=== PATIENT | female | born 1985 | race Caucasian/White ===

== ENCOUNTER 2016-10-19 06:53 | Observation (INO) ==
[2016-10-17 11:43] LABS: Basophils # (Auto) 0 K/mcL (0.0-0.3); Basophils % (Auto) 0.3 % (0.0-2.0); Eosinophils # (Auto) 0.1 K/mcL (0.0-0.7); Eosinophils % (Auto) 1.5 % (0.0-7.0); Granulocytes % (Auto) 62.3 % (38.0-78.0); Lymphocytes # (Auto) 1.7 K/mcL (1.5-4.8); Lymphocytes % (Auto) 29.8 % (15.5-49.0); Mean Cell Volume 87.5 fL (80.0-100.0); Mean Corpuscular HGB Conc 33.4 g/dL (31.0-36.0); Mean Corpuscular Hemoglobin 29.2 pg (26.0-34.0); Monocytes # (Auto) 0.3 K/mcL (0.1-0.9); Monocytes % (Auto) 6.1 % (1.0-12.0); Platelet Count 324 K/mcL (140-440); RBC 4.63 M/mcL (4.00-5.20); Red Cell Distribution Width 12.5 % (11.5-14.5)
[2016-10-17 12:06] LABS: ALT/SGPT 16 U/l (0-40); Albumin 4.2 gm/dL (3.2-5.2); Albumin/Globulin Ratio 1.4 (1.0-2.3); Alkaline Phosphatase 124 U/L (39-117); Blood Urea Nitrogen 12 mg/dl (6-20)
[2016-10-17 12:13] LABS: HCG,Serum NEGATIVE <10.0 mIU/Ml (<10)
[2016-10-19] MEDS ORDERED: SCOPOLAMINE 1 PATCH PATCH TOPICAL ONE (07:29)
[2016-10-19] MEDS ORDERED: cefOXitin 2 GM in DEXTROSE 5% IN WATER 50 ML IV SCH (08:30)
[2016-10-19] MEDS ORDERED: LIDOCAINE HCL/PF 100 MG/5 ML SYRINGE IV ONE (09:30)
[2016-10-19] MEDS ORDERED: DEXAMETHASONE 10 MG/ML VIAL IV ONE (09:30)
[2016-10-19] MEDS ORDERED: ROCURONIUM 10 MG/ML ML IV ONE (09:30)
[2016-10-19] MEDS ORDERED: GLYCOPYRROLATE 0.2 MG/ML VIAL IV ONE (09:30)
[2016-10-19] MEDS ORDERED: NEOSTIGMINE 1 MG/ML VIAL IV ONE (09:30)
[2016-10-19] MEDS ORDERED: MIDAZOLAM 5 MG/5 ML VIAL IV ONE (09:30)
[2016-10-19] MEDS ORDERED: PROPOFOL 200 MG/20 ML VIAL IV ONE (09:30)
[2016-10-19] MEDS ORDERED: fentaNYL 250 MCG/5 ML VIAL IV ONE (09:30)
[2016-10-19] MEDS ORDERED: ONDANSETRON 4 MG/2 ML VIAL IV ONE (09:30)
[2016-10-19] MEDS ORDERED: ePHEDrine 50 MG/ML AMPUL IV PRN (09:37)
[2016-10-19] MEDS ORDERED: HYDROmorphone 2 MG/ML SYRINGE IV PRN (09:37)
[2016-10-19] MEDS ORDERED: diphenhydrAMINE 50 MG/ML VIAL IV PRN (09:37)
[2016-10-19] MEDS ORDERED: MEPERIDINE 50 MG/ML SYRINGE IM ONE (09:37)
[2016-10-19] MEDS ORDERED: BENZOCAINE/MENTHOL 1 LOZENGE PO PRN (09:37)
[2016-10-19] MEDS ORDERED: NALOXONE HCL 0.4 MG/ML VIAL IV PRN (09:37)
[2016-10-19] MEDS ORDERED: ONDANSETRON 4 MG/2 ML VIAL IV PRN (09:37)
[2016-10-19] MEDS ORDERED: PROMETHAZINE 25 MG/ML VIAL IM ONE (09:37)
[2016-10-19] MEDS ORDERED: PROMETHAZINE 25 MG/ML VIAL IV PRN (09:37)
[2016-10-19] MEDS ORDERED: fentaNYL 100 MCG/2 ML VIAL IV PRN (09:37)
[2016-10-19] MEDS ORDERED: ATROPINE SULFATE 0.4 MG/ML VIAL IV PRN (09:37)
[2016-10-19] MEDS ORDERED: METOPROLOL TARTRATE 5 MG/5 ML VIAL IV PRN (09:37)
[2016-10-19] MEDS ORDERED: MEPERIDINE 25 MG/ML SYRINGE IV PRN (09:37)
[2016-10-19] MEDS ORDERED: IPRATROPIUM/ALBUTEROL 3 ML AMPUL.NEB NEB PRN (09:37)
[2016-10-19] MEDS ORDERED: METHOCARBAMOL 1,000 MG/10 ML VIAL IV PRN (09:37)
[2016-10-19] MEDS ORDERED: FLUMAZENIL 0.1 MG/ML ML IV PRN (09:37)
[2016-10-19] MEDS ORDERED: LACTATED RINGERS 1,000 ML IV SCH (09:45)
--- NOTE | 2016-10-19 10:12 | Brief Operative Note ---
Date of procedure: 10/19/16 Pre-op diagnosis: chronic cholecystitis Post-op diagnosis: other (chronic cholecystitis) Procedure: laparoscopic cholecystectomy Grafts/Implants: No Anesthesia: GETA Findings: dilated gallbladder Complications: none Surgeon: Rosa Greene Estimated blood loss (cc): 10 Specimens Removed/Pathology: other (gallbladder) Condition: stable Disposition: PACU
[2016-10-19] MEDS ORDERED: HYDROmorphone 2 MG/ML SYRINGE IM PRN ×2 (10:32→11:15)
--- NOTE | 2016-10-19 10:48 | Operative Note ---
DATE OF OPERATION: 10/19/2016 PREOPERATIVE DIAGNOSIS: Chronic cholecystitis. POSTOPERATIVE DIAGNOSIS: Chronic cholecystitis. PROCEDURE: Laparoscopic cholecystectomy. SURGEON: Rosa Greene MD. ANESTHESIA: General endotracheal anesthesia. FINDINGS: Dilated gallbladder. DESCRIPTION OF PROCEDURE: Under general anesthesia, the patient's abdomen was prepped and draped in the sterile field. A timeout procedure was carried out as per protocol. The old supraumbilical piercing site was excised. A transverse incision was made. Incision was extended down to the fascia. Veress needle was placed uneventfully. Abdomen was insufflated with 3 liters of CO2. A 12 mm port was placed. Laparoscope was placed. Dilated gallbladder was noted. The patient was placed in reverse Trendelenburg position and rotated to the left. Under videoscopic guidance, a 12 mm port and two 5 mm ports were placed in the right subcostal region. Gallbladder was grasped and positioned. Cystic duct and cystic artery were sequentially dissected. Each was followed back to the gallbladder. Cystic duct was clipped with five clips close to the gallbladder and divided. Cystic artery was clipped with four clips and divided. Gallbladder was then from the infrahepatic space using electrocautery. The gallbladder was grasped and placed in an Endocatch device and retrieved. There was a small amount of bile leak from the gallbladder. This was irrigated until the fluid was clear. There was no bleeding from the bed. CO2 was allowed to escape from the abdomen, and the ports were removed. Fascia at the umbilicus was closed with 0 Vicryl. Skin incisions were closed with karl. The patient tolerated the procedure well. She was awakened without difficulty. Dressings were placed. She was extubated and transferred to the postanesthetic care unit in stable, satisfactory condition. LCS:sivakumar Job ID: [id number] Doc ID: [id number] Rosa Greene M.D.
[2016-10-19] MEDS ORDERED: MAGNESIUM HYDROXIDE 30 ML ORAL.SUSP PO PRN (11:15)
[2016-10-19] MEDS: ONDANSETRON 4 MG/2 ML VIAL IV PRN (11:53)
[2016-10-19] MEDS: 0.9 % SODIUM CHLORIDE 1,000 ML IV SCH (12:06)
[2016-10-19] MEDS: 0.9 % SODIUM CHLORIDE 10 ML SYRINGE IV SCH ×2 (13:27→21:00)
[2016-10-19] MEDS: oxyCODONE HCL 5 MG TABLET PO PRN (20:57)
[2016-10-19] MEDS: FAMOTIDINE 20 MG TABLET PO SCH (20:57)
[2016-10-20] MEDS: 0.9 % SODIUM CHLORIDE 1,000 ML IV SCH ×2 (05:01→17:48)
[2016-10-20] MEDS: oxyCODONE HCL 5 MG TABLET PO PRN ×3 (05:27→20:30)
[2016-10-20] MEDS: 0.9 % SODIUM CHLORIDE 10 ML SYRINGE IV SCH ×3 (05:28→20:31)
[2016-10-20 06:32] LABS: Basophils # (Auto) 0 K/mcL (0.0-0.3); Basophils % (Auto) 0.3 % (0.0-2.0); Eosinophils # (Auto) 0.1 K/mcL (0.0-0.7); Eosinophils % (Auto) 0.9 % (0.0-7.0); Granulocytes % (Auto) 78.3 % (38.0-78.0); Lymphocytes # (Auto) 1.7 K/mcL (1.5-4.8); Lymphocytes % (Auto) 14.6 % (15.5-49.0); Mean Cell Volume 87.9 fL (80.0-100.0); Mean Corpuscular HGB Conc 33.7 g/dL (31.0-36.0); Mean Corpuscular Hemoglobin 29.6 pg (26.0-34.0); Monocytes # (Auto) 0.7 K/mcL (0.1-0.9); Monocytes % (Auto) 5.9 % (1.0-12.0); Platelet Count 287 K/mcL (140-440); Red Cell Distribution Width 12.3 % (11.5-14.5)
[2016-10-20] MEDS: FAMOTIDINE 20 MG TABLET PO SCH ×2 (08:07→20:30)
[2016-10-20] MEDS: OLOPATADINE 0.1% OU SCH (08:45)
[2016-10-20] MEDS: ONDANSETRON 4 MG/2 ML VIAL IV PRN (10:11)
--- NOTE | 2016-10-20 12:40 | General Surgery Progress Note ---
Subjective Patient reports: still having pain, no flatus, no bowel movement, afebrile Narrative: Note initiated : 10/20/16 at 12:37 pm Service Date, if different from initiated Date: [] Patient: Mounika Martinez 31 y/o F admitted on for Laparoscopic Cholecystectomy. Chief Complaint: [patient is having moderately severe shoulder pain much worse on the right than on the left. She is also having epigast and right subcostal pain. She has some nausea but not vomiting. She has been afebrile and she has not been tachycardic.. Her pain started while she was ambulating and has continued to. She did not have any difficulty during the night.] Objective Temp Pulse Resp BP Pulse Ox 97.4 F L 62 16 98/62 100 10/20/16 12:17 10/20/16 03:24 10/20/16 12:17 10/20/16 12:17 10/20/16 12:17 - Additional Data Intake & Output - Last 24 hours: Intake & Output 10/18/16 10/19/16 10/20/16 10/21/16 05:59 05:59 05:59 05:59 Intake Total 3970 / 3970 1320 / 1320 Output Total 2660 / 2660 350 / 350 Balance 1310 / 1310 970 / 970 Weight 160 lb 170 lb - Additional Exam patient is lying in bed in moderate distress. She looks very uncomforle and is splinting with respirations She has some pain with movement. HEENT unremarkable Neck supple without JVD Chest hypoventilation but with moderate breath sounds bilaterally. Some splintinn the right. Heart regular rhythm without tachycardia Abdomen mildly distended but with active bowel sounds Extremities no edema - Labs 10/20/16 04:40 10/17/16 09:52 Assessment and Plan (1) Anxiety Status: Chronic Current Visit: No (2) Cholecystitis Status: Chronic Assessment and plan: patient'sdischarge will be delayed .She will be continued on present therapy. IV fluids will be continued We'll check labs in the morning If symptoms persist will consider HIDA scan Current Visit: No (3) Depression Status: Chronic Current Visit: No - Time Spent With Patient Total time spent is greater than 50% in coordination of care (as documented) at patient's floor/unit and/or counseling patient:
[2016-10-21] MEDS: oxyCODONE HCL 5 MG TABLET PO PRN ×3 (00:34→12:36)
[2016-10-21] MEDS: 0.9 % SODIUM CHLORIDE 10 ML SYRINGE IV SCH (05:43)
[2016-10-21 05:46] LABS: Basophils # (Auto) 0 K/mcL (0.0-0.3); Basophils % (Auto) 0.2 % (0.0-2.0); Eosinophils # (Auto) 0.1 K/mcL (0.0-0.7); Granulocytes % (Auto) 58.8 % (38.0-78.0); Lymphocytes # (Auto) 2.5 K/mcL (1.5-4.8); Lymphocytes % (Auto) 32.8 % (15.5-49.0); Mean Corpuscular HGB Conc 33.6 g/dL (31.0-36.0); Mean Corpuscular Hemoglobin 29.9 pg (26.0-34.0); Monocytes # (Auto) 0.5 K/mcL (0.1-0.9); Monocytes % (Auto) 7.2 % (1.0-12.0); Platelet Count 236 K/mcL (140-440); RBC 3.75 M/mcL (4.00-5.20); Red Cell Distribution Width 12.9 % (11.5-14.5)
[2016-10-21 06:18] LABS: ALT/SGPT 18 U/l (0-40); Albumin 3.6 gm/dL (3.2-5.2); Albumin/Globulin Ratio 1.9 (1.0-2.3); Alkaline Phosphatase 101 U/L (39-117); Blood Urea Nitrogen 7 mg/dl (6-20)
[2016-10-21] MEDS: 0.9 % SODIUM CHLORIDE 1,000 ML IV SCH (08:05)
[2016-10-21] MEDS: FAMOTIDINE 20 MG TABLET PO SCH (08:05)
[2016-10-21] MEDS: OLOPATADINE 0.1% OU SCH (08:06)
--- NOTE | 2016-10-21 12:18 | General Surgery Progress Note ---
Subjective Patient reports: feels better, pain is less, tolerating a regular diet, no flatus, no bowel movement, afebrile Narrative: Note initiated : 10/21/16 at 12:15 pm Service Date, if different from initiated Date: [] Patient: Mounika Martinez 31 y/o F admitted on 10/20/16 for Laparoscopic Cholecystectomy. Chief Complaint: [the patient is feeling much better. She has much less shoulder pain and her inspiratory efforts a much better. She denies shortness of breath. Her upper abdominal pain and this resolved but she does have some periumbilical pain. She has not had flatus or bowel movement. She can eat a small amount of regular diet without nausea. She does complain of mild bloating but this is better than on yesterday.] Objective Temp Pulse Resp BP Pulse Ox 97.6 F 66 18 116/75 98 10/21/16 11:59 10/21/16 04:33 10/21/16 11:59 10/21/16 11:59 10/21/16 11:59 - Additional Data Intake & Output - Last 24 hours: Intake & Output 10/19/16 10/20/16 10/21/16 10/22/16 05:59 05:59 05:59 05:59 Intake Total 3970 / 3970 4002 / 4002 1480 / 1480 Output Total 2660 / 2660 3200 / 3200 1800 / 1800 Balance 1310 / 1310 802 / 802 -320 / -320 Weight 170 lb 171 lb - Additional Exam patient is sitting upright in bed in no acute distress HEENT no abnormality noted Neck supple without JVD Chest equal breath sounds but with discernible splinting. No wheezes heart regular rhythm heart rate in the 60s Abdomen mildly distended with active bowel sounds no drainage around the staple lines Extremity o edema - Labs 10/21/16 04:52 10/21/16 04:52 Diabetes panel 10/21/16 Range/Units 04:52 Sodium 138 (133-145) mmol/L Potassium 4.3 (3.3-5.1) mmol/L Chloride 101 (96-108) mmol/L Carbon Dioxide 26 (22-30) mmol/L BUN 7 (6-20) mg/dl Creatinine 0.9 (0.6-1.1) mg/dl Glucose 102 (70-105) mg/dL Calcium 8.8 (8.6-10.4) mg/dl AST 15 (0-37) U/l ALT 18 (0-40) U/l Alkaline Phosphatase 101 (39-117) U/L Total Protein 5.5 L (5.9-8.4) gm/dL Albumin 3.6 (3.2-5.2) gm/dL Calcium panel 10/21/16 Range/Units 04:52 Calcium 8.8 (8.6-10.4) mg/dl Albumin 3.6 (3.2-5.2) gm/dL Pituitary panel 10/21/16 Range/Units 04:52 Sodium 138 (133-145) mmol/L Potassium 4.3 (3.3-5.1) mmol/L Chloride 101 (96-108) mmol/L Carbon Dioxide 26 (22-30) mmol/L BUN 7 (6-20) mg/dl Creatinine 0.9 (0.6-1.1) mg/dl Glucose 102 (70-105) mg/dL Calcium 8.8 (8.6-10.4) mg/dl Adrenal panel 10/21/16 Range/Units 04:52 Sodium 138 (133-145) mmol/L Potassium 4.3 (3.3-5.1) mmol/L Chloride 101 (96-108) mmol/L Carbon Dioxide 26 (22-30) mmol/L BUN 7 (6-20) mg/dl Creatinine 0.9 (0.6-1.1) mg/dl Glucose 102 (70-105) mg/dL Calcium 8.8 (8.6-10.4) mg/dl Total Bilirubin 0.3 (0.0-1.0) mg/dL AST 15 (0-37) U/l ALT 18 (0-40) U/l Alkaline Phosphatase 101 (39-117) U/L Total Protein 5.5 L (5.9-8.4) gm/dL Albumin 3.6 (3.2-5.2) gm/dL Assessment and Plan (1) Anxiety Status: Chronic Current Visit: No (2) Cholecystitis Status: Chronic Assessment and plan: clinically improved from yesterday with decreased shoulder pain and abdominal pain Mild postoperative ileus No fever or leukocytosis plan patient is discharged home She will be followed up in the office in 2 weeks Current Visit: No (3) Depression Status: Chronic Current Visit: No - Time Spent With Patient Total time spent is greater than 50% in coordination of care (as documented) at patient's floor/unit and/or counseling patient:
--- NOTE | 2016-10-21 12:25 | Discharge Summary ---
Providers - Providers Patient information: Note initiated : 10/21/16 at 12:22 pm Service Date, if different from initiated Date: [] Patient: Mounika Martinez 31 y/o F admitted on 10/20/16 for Laparoscopic Cholecystectomy. Chief Complaint: [] Date of admission: 10/19/16 Discharge date: 10/21/16 Attending physician: Rosa Greene Hospitalization Hospital course: 31-year-old female who was admitted through day surgery on 19 October 2016 She underwent laparoscopic cholecystectomy for chronic cholecystitis. She had an uneventful procedure She had increased shoulder pain nausea and abdominal pain on the first postoperative day. This was much more severe than usual She was afebrile and did not have leukocytosis. She did have significant abdominal distention. She had minimal by mouth intake. She was monitored and her IV fluids were continued. Her shoulder pain has essentially resolved. She now has periumbilical pain but minimal upper abdominal pain. Her by mouth intake has improved. She is afebrile and she does not have leukocytosis. She is stable for discharge. Discharge diagnosis: chronic cholecystitis Reason for admission: biliary colic and chronic cholecystitis Procedures: LAPAROSCOPIC CHOLECYSTECTOMY Pertinent studies/significant findings: NONE Complications: NONE Exam Temp Pulse Resp BP Pulse Ox 97.6 F 66 18 116/75 98 10/21/16 11:59 10/21/16 04:33 10/21/16 11:59 10/21/16 11:59 10/21/16 11:59 - General physical appearance other (mild distress due to pain) - Eyes normal ocular movement - ENT no congestion - Neck no venous distension - Cardiovascular Cardiovascular exam IM: Present: RRR, +S1, +S2. Absent: JVD - Respiratory other (hypoventilation with splinting respirations) - Abdomen Abdomen: Present: distended (mildly distended; incisions look good; good active bowel sounds) - Integumentary Present: no rash - Neurologic Present: normal coordination, normal sensation - Musculoskeletal Present: normal gait, normal posture Discharge Plan - Patient/Caregiver Discharge Instructions Activity: increase activity as tolerated Diet: Regular Diet Additional Instructions: Leave dressings in place until you return to the office You may shower after 24 hours prevent getting soap on the dressings. Pat dry. Prescriptions: oxyCODONE HCL [Roxicodone] 10 mg PO Q4HP PRN #60 tablet PRN Reason: Pain - Follow up Plan Follow up with: Rosa Greene MD [Physician] - 11/01/16 8:30 am Disposition: Home, Self-Care Prognosis: Good Rehab Potential: Good I certify that the patient requires SNF services.: No Overall status at discharge: patient is progressing back to baseline Pending Studies Resuscitation Status Full Code Diet Regular Diet Start Sun Apr 9 Lunch Famotidine (Pepcid) 20 mg PO BID ADI Last Admin: 10/21/16 08:05 Dose: 20 mg Admin: 10/20/16 20:30 Dose: 20 mg Admin: 10/20/16 08:07 Dose: 20 mg Admin: 10/19/16 20:57 Dose: 20 mg Hydromorphone HCl (Dilaudid) 1 mg IM Q2HP PRN PRN Reason: Pain Last Admin: 10/20/16 12:45 Dose: 1 mg Morphine Sulfate (Morphine) 4 mg IV Q4HP PRN PRN Reason: Pain Last Admin: 10/19/16 12:03 Dose: 4 mg Ondansetron HCl (Zofran) 4 mg IV Q4HP PRN PRN Reason: Nausea And Vomiting Last Admin: 10/20/16 10:11 Dose: 4 mg Admin: 10/19/16 11:53 Dose: 4 mg Oxycodone HCl (Roxicodone) 10 mg PO Q4HP PRN PRN Reason: Pain Last Admin: 10/21/16 04:23 Dose: 10 mg Admin: 10/21/16 00:34 Dose: 10 mg Admin: 10/20/16 20:30 Dose: 10 mg Admin: 10/20/16 10:11 Dose: 10 mg Admin: 10/20/16 05:27 Dose: 10 mg Admin: 10/19/16 20:57 Dose: 10 mg Olopatadine [Patanol (] 0.1% Ophth Drops) 1 dose OU DAILY ADI Last Admin: 10/21/16 08:06 Dose: 1 dose Admin: 10/20/16 08:45 Dose: 1 dose Sodium Chloride (Saline Flush) 10 ml IV Q8 ADI Last Admin: 10/21/16 05:43 Dose: Not Given Admin: 10/20/16 20:31 Dose: Not Given Admin: 10/20/16 17:15 Dose: Not Given Admin: 10/20/16 05:28 Dose: Not Given Admin: 10/19/16 21:00 Dose: Not Given Admin: 10/19/16 13:27 Dose: Not Given Shift Summary 10/21/16 05:01 Shift Summary by Yeimy Godoy. Patient was moved to OBS d/t uncontrolled nausea during the day. Patient denied any nausea this evening. Patient noticed that when her right shoulder began hurting it was time to request medication. Pain was able to be controlled with medication and warm compresses. Oxycodone 10mg was given x 3. Patient hopes to be discharged home today. Initialized on 10/21/16 05:01 - END OF NOTE
--- NOTE | 2016-10-22 13:26 | Surgical Pathology Report ---
HISTOLOGY SPECIMEN MICROSCOPIC DIAGNOSIS GALLBLADDER, CHOLECYSTECTOMY: -- CHRONIC CHOLECYSTITIS. (DMT:sln) PROCEDURAL IMPRESSION Cholecystitis. GROSS DESCRIPTION Received in formalin labeled gallbladder, is a roberts gallbladder which measures 2.5 x 2.5 x 7.0 cm. There is a very short portion of cystic duct with a silver metallic clip in place. There is an additional clip on the vessel on the serosa. The serosa is smooth and glistening. The hepatic surface is green and slightly rough. The mucosa is dark green and velvety. The wall averages 0.2 cm thick. Stones are not identified. Wind Tunnel Technician sections - one cassette. (RAD:sln) Electronically Signed by: Miguel A Gagnon M.D.
== END 2016-10-21 13:10 | disposition home or self-care (01) ==
LOC: SUR 06:53 → MEDSUR 06:53
PROVIDERS: ADMIT Family Medicine Adult Medicine; ATTEND Family Medicine Adult Medicine